=== PATIENT | male | born 1985 | race Caucasian/White ===

== ENCOUNTER → 2018-04-01 | Day surgery (SDC) | payer OTHER ==
[~2018-04-01] VITALS: Ht 170.2 cm; Wt 88.5 kg
[~2018-04-01] MED LIST: OMEPRAZOLE20 M2 PO
--- NOTE | 2018-04-01 10:09 | Operative Report ---
Operative/Inv Procedure Report Surgery Date: 04/01/18 Name of Procedure: CO2 laser ablation of penile lesions Pre-Operative Diagnosis: penile lesions Post-Operative Diagnosis: same Estimated Blood Loss: scant Surgeon/Heat Treater Helper: Leila Pinto MD Anesthesia: local monitored anesthesi Complications: none Condition: stable Operative Indication: penile lesions Operative/Procedure Note Note: This 33-year-old male with a history of penile lesions for many years. He is very bothered by it and he wished to have them surgically removed. He was given the risks benefits and alternatives of CO2 laser ablation. All questions were answered. Consent was signed in the holding area. Patient was taken to the operating room placed on the operating table in the supine position. Timeout was performed. IV antibiotics were infused. IV sedation was started. SCDs were placed. Appropriate masks and laser glasses were worn by everyone in the room. A total of 4 lesions were seen and these were ablated in sequential order after he was prepped and draped in the standard sterile fashion.. The smaller ones were ablated first at a laser level of 3. The lesions were slowly treated with a paint-like stroke of the laser in a perpendicular fashion and the lesions were easily burned. The entirety of the lesions were removed and the fat layer was visible after the removal of the lesions. There is no active bleeding. Bacitracin was applied to each of the resected lesions. This was followed by Telfa and OpSite dressings. Patient tolerated the procedure well and was transferred to the recovery room stable condition. Findings: 3 lesions located in the suprapubic region on the left side and M1 on the right side lateral in the groin region. A larger penile lesion was at the base of the penis on the dorsum approximately 4 mm in size. Discharge Disposition: Same Day Admissions
== END ==
LOC: STS 03:24
DX: A63.0 Anogenital (venereal) warts (principal); B37.49 Other urogenital candidiasis; R35.0 Frequency of micturition; F17.220 Nicotine dependence, chewing tobacco, uncomplicated
CPT/HCPCS: J0690; J1885; J2001; J2250; J3490